=== PATIENT | female | born 1995 | race African-American/Black ===

== ENCOUNTER 2021-09-22 10:49 | Emergency (ER) | payer MEDICAID ==
[~2021-09-22] VITALS: Ht 167.6 cm; Wt 111.1 kg
[2021-09-22 11:05] VITALS: BP_SYST 127
[2021-09-22] MEDS ORDERED: NAPR-688 PO (11:57)
[2021-09-22] MEDS ORDERED: IBUPROFEN 800 MG TABLET PO ONE (12:00)
[2021-09-22 12:07] VITALS: BP_SYST 127
== END 2021-09-22 12:07 | disposition home or self-care (01) ==
LOC: SED 10:49
DX: S80.01XA Contusion of right knee, initial encounter (principal); M25.861 Other specified joint disorders, right knee; R03.0 Elevated blood-pressure reading, without diagnosis of hypertension; Z79.899 Other long term (current) drug therapy; W18.39XA Other fall on same level, initial encounter; Y93.89 Activity, other specified; Y92.89 Other specified places as the place of occurrence of the external cause; Y99.8 Other external cause status
CPT/HCPCS: 73560-TC; 99283